=== PATIENT | male | born 1935 | race Caucasian/White ===

== ENCOUNTER 2017-02-11 17:04 | Inpatient (IN) ==
[2017-02-11] MEDS ORDERED: NITROGLYCERIN 0.4 MG SUBLINGUAL TABLET SL PRN (17:21)
[2017-02-11 17:43] VITALS: BMI 28.8
--- NOTE | 2017-02-11 19:03 | Pharmacy Consult ---
Pharmacy Consult-Heparin - Laboratory Information Heparin Plt Count 237 T/MM3 (130-400) 02/11/17 18:09 - Consult Information Heparin consult (cardial dosing) by Kassandra Cooper APRN for Mr Gaston who is 81 years old and weighs 81.2kg. Baseline PTT ordered and once back will bolus at 60 units/kg and run the drip at 12 units/kg/hr. Will order PTT 8 hrs after and evaluate. Thank you.
[2017-02-11] MEDS: LISINOPRIL 2.5 MG TABLET PO SCH (19:05)
[2017-02-11] MEDS: ASPIRIN *EC* 81 MG TABLET PO SCH (19:05)
[2017-02-11] MEDS ORDERED: HEPARIN 1,000unit/ml INJECTION 10ml IVP ONE (20:56)
[2017-02-11] MEDS ORDERED: HEPARIN DRIP 20,000 UNIT/500 ML BAG IV SCH (20:58)
[2017-02-11] MEDS: QUETIAPINE 25 MG TABLET PO SCH (21:13)
[2017-02-11] MEDS: ATORVASTATIN 40 MG TABLET PO SCH (21:13)
[2017-02-12] MEDS ORDERED: LEVOTHYROXINE 100 MCG TABLET PO SCH (06:30)
--- NOTE | 2017-02-12 08:50 | XRay Report ---
Indication: chest pain PROCEDURE: XR chest 1V: Encounter: Initial Comparison: None FINDINGS: The lungs are clear. There is no abnormal airspace opacity, pleural effusion or pneumothorax identified. The heart size, pulmonary vasculature and mediastinum are within normal limits. No significant skeletal abnormality is seen. IMPRESSION: No acute cardiopulmonary abnormality. .
[2017-02-12] MEDS: ASPIRIN *EC* 81 MG TABLET PO SCH (08:51)
[2017-02-12] MEDS: LISINOPRIL 2.5 MG TABLET PO SCH (09:39)
[2017-02-12] MEDS ORDERED: MIDAZOLAM 2mg/2ml INJECTION ONE (12:24)
[2017-02-12] MEDS ORDERED: FentaNYL 100 MCG/2 ML INJECTION ONE (12:24)
[2017-02-12] MEDS ORDERED: SALINE FLUSH 10ml SYRINGE ONE (12:24)
[2017-02-12] MEDS ORDERED: LIDOCAINE 1% (10mg/ml) 30ml SDV INJ ONE (12:24)
[2017-02-12] MEDS ORDERED: HEPARIN 1,000 UNITS/500 ML PREMIX (*CVL ONLY*) IV ONE (12:25)
[2017-02-12] MEDS ORDERED: Verapamil 5 MG/2 ML VIAL ONE (12:43)
[2017-02-12] MEDS ORDERED: HEPARIN 1,000unit/ml INJECTION 10ml ONE (12:43)
[2017-02-12] MEDS ORDERED: NITROGLYCERIN 50MG INJECTION IV ONE (12:43)
[2017-02-12] MEDS ORDERED: NS 1,000 ML ONE (12:47)
[2017-02-12] MEDS ORDERED: TICAGRELOR 90 MG TABLET ONE (13:13)
[2017-02-12] MEDS ORDERED: ATROPINE 1 MG/ML INJECTION IVP PRN (13:53)
[2017-02-12] MEDS ORDERED: MAG-AL + SIM ORAL LIQUID 30ml PO PRN (13:53)
[2017-02-12] MEDS ORDERED: PROMETHAZINE 25 MG INJECTION IVP PRN (13:53)
[2017-02-12] MEDS ORDERED: LORazepam 0.5 MG TABLET PO PRN (13:53)
[2017-02-12] MEDS ORDERED: HYDROCODONE/APAP 7.5 MG/325 MG TABLET PO PRN (13:53)
[2017-02-12] MEDS ORDERED: Bisacodyl EC TAB 5 MG TABLET PO PRN (13:53)
[2017-02-12] MEDS ORDERED: ONDANSETRON 4 MG/2 ML INJECTION IVP PRN (13:53)
[2017-02-12] MEDS ORDERED: MORPHINE SULFATE 4 MG SYRINGE IVP PRN ×2 (13:53)
[2017-02-12] MEDS ORDERED: ACETAMINOPHEN 325 MG TABLET PO PRN (13:53)
[2017-02-12] MEDS ORDERED: BISACODYL 10 MG SUPPOSITORY RECTALLY PRN (13:53)
[2017-02-12] MEDS ORDERED: NITROGLYCERIN 0.4 MG SUBLINGUAL TABLET SL PRN (13:53)
[2017-02-12] MEDS ORDERED: METOCLOPRAMIDE 10mg/2ml INJECTION IVP PRN (13:53)
[2017-02-12] MEDS ORDERED: NS 1,000 ML IV SCH (15:00)
[2017-02-12] MEDS ORDERED: NICOTINE 21 MG PATCH TD PRN (17:42)
[2017-02-12] MEDS: QUETIAPINE 50 MG TABLET PO SCH ×2 (18:29→22:07)
[2017-02-12] MEDS ORDERED: LITHIUM CITRATE PO SCH (21:00)
[2017-02-12] MEDS: QUETIAPINE 25 MG TABLET PO SCH (22:36)
[2017-02-12] MEDS: ATORVASTATIN 40 MG TABLET PO SCH (23:36)
[2017-02-13] MEDS ORDERED: FALL RISK - PHARMACY CONSULT XX ONE (00:51)
[2017-02-13] MEDS: TICAGRELOR 90 MG TABLET PO SCH ×2 (02:35→09:43)
[2017-02-13] MEDS ORDERED: LEVOTHYROXINE 100 MCG TABLET PO SCH (06:30)
[2017-02-13] MEDS ORDERED: ASPIRIN *EC* 81 MG TABLET PO SCH (09:00)
[2017-02-13] MEDS ORDERED: NICOTINE PATCH REMOVAL TD SCH ×2 (09:00→18:00)
--- NOTE | 2017-02-13 10:58 | Cardiac Catheterization Report ---
DATE OF PROCEDURE February 12, 2017 The patient is an 81-year-old gentleman with non-ST elevation myocardial infarction and was referred for further evaluation by cardiac catheterization and possible intervention. Informed consent was obtained after explaining the procedure and the potential risks to the patient who agreed to proceed with the procedure. PROCEDURE 1. Left heart catheterization. 2. Coronary angiography. 3. Left ventriculography. 4. Recanalization PTCA and stent of LAD using a 4.0 x 9 drug-eluting Resolute Integrity stent, 3.0 x 15, 2.75 x 15, and 2.25 x 8 mm drug-eluting Resolute Arturo stents. 5. Right femoral angiography to visualize the vessel for closure device. 6. Successful Mynx deployment for hemostasis. TECHNIQUE He was prepped and draped in the usual sterile techniques. 1% lidocaine was used for local anesthesia. Conscious sedation was performed using Versed and fentanyl. Using modified Seldinger technique, arterial access was obtained into the right femoral artery with placement of a 6-[place] arterial sheath. Initially we tried to get access into the right radial artery, however, were not able to get access into the right radial artery and therefore we changed our approach to femoral approach. 6000 units of heparin was administered prior to intervention. 180 mg of Brilinta was given prior to intervention. LEFT VENTRICULOGRAPHY Left ventriculography in single-plane AMADOR shallow projection showed mild apical hypokinesia with ejection fraction of about 60% with no mitral regurgitation or gradient across the aortic valve. LVEDP was about 18. CORONARY ANGIOGRAPHY Left main was free of significant lesions. Left anterior descending artery had about 90% stenosis proximal to the origin of the diagonal. After diagonal, LAD was occluded. Left circumflex artery had about 70-80% eccentric lesion. Right coronary artery had diffuse disease of up to about 30%. After reviewing the images we decided to proceed with intervention on LAD. A 6- [place] EBU-4 guide was advanced to the ostium of left main. A Runthrough wire was used to cross the lesion into distal LAD after recanalizing the vessel. A 3.0 x 20 balloon was delivered to the occlusion site where it was inflated up to 10 atmospheres. Next, angiogram showed reconstitution of the blood flow all the way down to the apex of the heart. Next, we used a 2.75 x 15 drug-eluting Resolute Arturo stent which was delivered to the distal part of the lesion and deployed by inflating the balloon to 15 atmospheres. Next, we used a 3.0 x 15 drug-eluting Resolute Arturo stent which was delivered proximal to the previous stent and deployed by inflating the balloon to 16 atmospheres. Next, we used a 4.0 x 9 mm drug-eluting Resolute Integrity stent which was delivered to the proximal lesion site where it was deployed by inflating the balloon to 18 atmospheres. Next, angiogram showed excellent results with no residual stenosis. However, there was about 70% stenosis at the distal edge of the distal stent and therefore we decided to proceed with another stent. A 2.25 x 8 mm drug-eluting Arturo stent was delivered to the most distal part and deployed by inflating the balloon to 14 atmospheres. Next, angiogram showed excellent results with no residual stenosis. Next, we used a 2.75 x 15 stent balloon which was delivered to the transition of the distal two stents and was positioned at the transition and inflated up to 14 atmospheres. Next, angiogram showed excellent results with no residual stenosis with excellent flow. The patient tolerated the procedure well with no complications. Right femoral angiography showed patent common femoral, proximal SFA and profunda and therefore Mynx was used for hemostasis. IMPRESSION 1. Coronary artery disease as described above. 2. Total occlusion of the LAD. 3. Apical hypokinesia with ejection fraction of about 60%. 4. Successful recanalization PTCA and stent of LAD using a 2.25 x 8, 2.75 x 15 , and 3.0 x 15 drug-eluting Resolute [place] stents and a 4.0 x 9 drug-eluting Resolute Integrity stent. 5. Successful Mynx deployment for hemostasis. PLAN Will continue dual antiplatelet therapy at least for one year and continue risk modification. One might consider left circumflex artery percutaneous intervention in future. MTDD
--- NOTE | 2017-02-13 13:49 | Discharge Summary ---
<Zeinab Cooper - Last Filed: 02/13/17 14:26> Discharge Information Date of admission: 02/12/17 13:56 Anticipated date of discharge: 02/13/17 Attending Physician: Antione Taylor MD Consults: 02/11/17 Pharmacy Consult [CONS] Routine Pharmacy Consult: Heparin - Procedures Procedures: Date of Exam: 02/12/17 Type of Exam(s): CA heart cath LT DATE OF PROCEDURE February 12, 2017 The patient is an 81-year-old gentleman with non-ST elevation myocardial infarction and was referred for further evaluation by cardiac catheterization and possible intervention. Informed consent was obtained after explaining the procedure and the potential risks to the patient who agreed to proceed with the procedure. PROCEDURE 1. Left heart catheterization. 2. Coronary angiography. 3. Left ventriculography. 4. Recanalization PTCA and stent of LAD using a 4.0 x 9 drug-eluting Resolute Integrity stent, 3.0 x 15, 2.75 x 15, and 2.25 x 8 mm drug-eluting Resolute [place] stents. 5. Right femoral angiography to visualize the vessel for closure device. 6. Successful Mynx deployment for hemostasis. TECHNIQUE He was prepped and draped in the usual sterile techniques. 1% lidocaine was used for local anesthesia. Conscious sedation was performed using Versed and fentanyl. Using modified Seldinger technique, arterial access was obtained into the right femoral artery with placement of a 6-[place] arterial sheath. Initially we tried to get access into the right radial artery, however, were not able to get access into the right radial artery and therefore we changed our approach to femoral approach. 6000 units of heparin was administered prior to intervention. 180 mg of Brilinta was given prior to intervention. LEFT VENTRICULOGRAPHY Left ventriculography in single-plane AMADOR shallow projection showed mild apical hypokinesia with ejection fraction of about 60% with no mitral regurgitation or gradient across the aortic valve. LVEDP was about 18. CORONARY ANGIOGRAPHY Left main was free of significant lesions. Left anterior descending artery had about 90% stenosis proximal to the origin of the diagonal. After diagonal, LAD was occluded. Left circumflex artery had about 70-80% eccentric lesion. Right coronary artery had diffuse disease of up to about 30%. After reviewing the images we decided to proceed with intervention on LAD. A 6- [place] EBU-4 guide was advanced to the ostium of left main. A Runthrough wire was used to cross the lesion into distal LAD after recanalizing the vessel. A 3.0 x 20 balloon was delivered to the occlusion site where it was inflated up to 10 atmospheres. Next, angiogram showed reconstitution of the blood flow all the way down to the apex of the heart. Next, we used a 2.75 x 15 drug-eluting Resolute [place] stent which was delivered to the distal part of the lesion and deployed by inflating the balloon to 15 atmospheres. Next, we used a 3.0 x 15 drug-eluting Resolute [place] stent which was delivered proximal to the previous stent and deployed by inflating the balloon to 16 atmospheres. Next, we used a 4.0 x 9 mm drug-eluting Resolute Integrity stent which was delivered to the proximal lesion site where it was deployed by inflating the balloon to 18 atmospheres. Next, angiogram showed excellent results with no residual stenosis. However, there was about 70% stenosis at the distal edge of the distal stent and therefore we decided to proceed with another stent. A 2.25 x 8 mm drug-eluting Arturo stent was delivered to the most distal part and deployed by inflating the balloon to 14 atmospheres. Next, angiogram showed excellent results with no residual stenosis. Next, we used a 2.75 x 15 stent balloon which was delivered to the transition of the distal two stents and was positioned at the transition and inflated up to 14 atmospheres. Next, angiogram showed excellent results with no residual stenosis with excellent flow. The patient tolerated the procedure well with no complications. Right femoral angiography showed patent common femoral, proximal SFA and profunda and therefore Mynx was used for hemostasis. IMPRESSION 1. Coronary artery disease as described above. 2. Total occlusion of the LAD. 3. Apical hypokinesia with ejection fraction of about 60%. 4. Successful recanalization PTCA and stent of LAD using a 2.25 x 8, 2.75 x 15 , and 3.0 x 15 drug-eluting Resolute [place] stents and a 4.0 x 9 drug-eluting Resolute Integrity stent. 5. Successful Mynx deployment for hemostasis. PLAN Will continue dual antiplatelet therapy at least for one year and continue risk modification. One might consider left circumflex artery percutaneous intervention in future. - Laboratory Labs: 02/13/17 06:05 02/13/17 06:05 Laboratory Results - last 48 hr 02/11/17 02/11/17 02/11/17 18:09 18:09 19:22 WBC 8.5 RBC 4.36 L Hgb 13.1 L Hct 41.1 MCV 94.3 MCH 30.0 MCHC 31.9 RDW Std Deviation 53.8 H Plt Count 237 MPV 10.7 Immature Gran % (Auto) 0.2 Neut % (Auto) 75.2 H Lymph % (Auto) 15.1 L Kaufman % (Auto) 6.3 Eos % (Auto) 2.7 Baso % (Auto) 0.5 Neut # (Auto) 6.4 Lymph # (Auto) 1.3 Kaufman # (Auto) 0.5 Eos # (Auto) 0.2 Baso # (Auto) 0.0 Abs Immat Gran (auto) 0.02 APTT 30.9 Turbidity < 20 Sodium 144 Potassium 4.1 Chloride 114 H Carbon Dioxide 20 L Anion Gap 10 BUN 18.0 Creatinine 1.3 GFR Calculation 53 BUN/Creatinine Ratio 14 Glucose 96 Calculated Osmolality 279 Calcium 9.5 Total Bilirubin 0.80 Icterus Index < 2 AST 26 ALT 30 Alkaline Phosphatase 85 Troponin I 4.580 H Total Protein 7.0 Albumin 3.7 Globulin 3.3 Albumin/Globulin Ratio 1.1 Triglycerides Cholesterol LDL Cholesterol, Calc VLDL Cholesterol HDL Cholesterol Cholesterol/HDL Ratio Specimen Hemolysis < 15 T[place] Specimen Comment Tests Not Done Reason Tests Not Done 02/11/17 02/11/17 02/12/17 23:31 23:31 04:35 WBC RBC Hgb Hct MCV MCH MCHC RDW Std Deviation Plt Count MPV Immature Gran % (Auto) Neut % (Auto) Lymph % (Auto) Kaufman % (Auto) Eos % (Auto) Baso % (Auto) Neut # (Auto) Lymph # (Auto) Kaufman # (Auto) Eos # (Auto) Baso # (Auto) Abs Immat Gran (auto) APTT Turbidity Sodium Potassium Chloride Carbon Dioxide Anion Gap BUN Creatinine GFR Calculation BUN/Creatinine Ratio Glucose Calculated Osmolality Calcium Total Bilirubin Icterus Index AST ALT Alkaline Phosphatase Troponin I 4.770 H Total Protein Albumin Globulin Albumin/Globulin Ratio Triglycerides 117 Cholesterol 161 LDL Cholesterol, Calc 103.6 VLDL Cholesterol 23.4 HDL Cholesterol 34 L Cholesterol/HDL Ratio 4.7 Specimen Hemolysis < 15 [place] 0.5 L Specimen Comment Tests Not Done Reason Tests Not Done 02/12/17 02/12/17 02/12/17 04:35 04:35 04:35 WBC 8.3 RBC 4.23 L Hgb 12.7 L Hct 40.2 L MCV 95.0 MCH 30.0 MCHC 31.6 RDW Std Deviation 53.2 H Plt Count 216 MPV 11.7 Immature Gran % (Auto) Neut % (Auto) Lymph % (Auto) Kaufman % (Auto) Eos % (Auto) Baso % (Auto) Neut # (Auto) Lymph # (Auto) Kauf[place] # (Auto) Eos # (Auto) Baso # (Auto) Abs Immat Gran (auto) APTT 44.6 H Turbidity Sodium Potassium Chloride Carbon Dioxide Anion Gap BUN Creatinine GFR Calculation BUN/Creatinine Ratio Glucose Calculated Osmolality Calcium Total Bilirubin Icterus Index AST ALT Alkaline Phosphatase Troponin I 4.520 H Total Protein Albumin Globulin Albumin/Globulin Ratio Triglycerides Cholesterol LDL Cholesterol, Calc VLDL Cholesterol HDL Cholesterol Cholesterol/HDL Ratio Specimen Hemolysis < 15 [place] Specimen Comment Tests Not Done Reason Tests Not Done 02/12/17 02/12/17 02/12/17 04:35 14:20 15:07 WBC RBC Hgb Hct MCV MCH MCHC RDW Std Deviation Plt Count MPV Immature Gran % (Auto) Neut % (Auto) Lymph % (Auto) Kaufman % (Auto) Eos % (Auto) Baso % (Auto) Neut # (Auto) Lymph # (Auto) K[place] # (Auto) Eos # (Auto) Baso # (Auto) Abs Immat Gran (auto) APTT Cancelled Turbidity < 20 Sodium 144 Potassium 4.0 Chloride 118 H Carbon Dioxide 16 L Anion Gap 10 BUN 16.0 Creatinine 1.2 GFR Calculation 58 BUN/Creatinine Ratio 13 Glucose 82 Calculated Osmolality 277 Calcium 9.7 Total Bilirubin Icterus Index < 2 AST ALT Alkaline Phosphatase Troponin I Total Protein Albumin Globulin Albumin/Globulin Ratio Triglycerides Cholesterol LDL Cholesterol, Calc VLDL Cholesterol HDL Cholesterol Cholesterol/HDL Ratio Specimen Hemolysis < 15 [place] Specimen Comment Lab to recollect Tests Not Done Ptt Reason Tests Not Done QNS 02/13/17 02/13/17 06:05 06:05 WBC 8.1 RBC 4.25 L Hgb 12.7 L Hct 40.2 L MCV 94.6 MCH 29.9 MCHC 31.6 RDW Std Deviation 52.5 H Plt Count 215 MPV 10.6 Immature Gran % (Auto) 0.2 Neut % (Auto) 74.7 H Lymph % (Auto) 15.4 L Kauf[place] % (Auto) 7.2 Eos % (Auto) 2.3 Baso % (Auto) 0.2 Neut # (Auto) 6.1 Lymph # (Auto) 1.3 Kaufman # (Auto) 0.6 Eos # (Auto) 0.2 Baso # (Auto) 0.0 Abs Immat Gran (auto) 0.02 APTT Turbidity < 20 Sodium 144 Potassium 4.2 Chloride 113 H Carbon Dioxide 22 D Anion Gap 9 BUN 14.0 Creatinine 1.2 GFR Calculation 58 BUN/Creatinine Ratio 12 Glucose 92 Calculated Osmolality 278 Calcium 9.7 Total Bilirubin Icterus Index < 2 AST ALT Alkaline Phosphatase Troponin I Total Protein Albumin Globulin Albumin/Globulin Ratio Triglycerides Cholesterol LDL Cholesterol, Calc VLDL Cholesterol HDL Cholesterol Cholesterol/HDL Ratio Specimen Hemolysis < 15 [place] Specimen Comment Tests Not Done Reason Tests Not Done - Radiology Radiology: Date of Exam: 02/11/17 Ordering Provider: Zeinab Cooper APRN Type of Exam(s): XR chest 1V Reason for Exam(s): chest pain Indication: chest pain PROCEDURE: XR chest 1V: Encounter: Initial Comparison: None FINDINGS: The lungs are clear. There is no abnormal airspace opacity, pleural effusion or pneumothorax identified. The heart size, pulmonary vasculature and mediastinum are within normal limits. No significant skeletal abnormality is seen. IMPRESSION: No acute cardiopulmonary abnormality. History of Present Illness HPI: Shahram is a 81 year old male who is new to Dr. Taylor's practice and was seen in [facility] on 02/11/17 after having been to [facility] on 02/06/17 with chest pain and troponin was found to be 1.[address] depression on his EKG. At thst time he was upset with the ED DR and left without treatment or intervention. He presented to the [place] clinic with intermittent chest pain which began 2 weeks ago and generally lasts 2 hours. The episodes occur at rest and are associated with dyspnea. He was transferred to [facility] for evaluation and treatment of NSTEMI. He was started on Heparin drip until left heart cath. He was given Mniwxicazf79.5mg BID and Atorvastatin 40mg po daily. ACEI/ARB medications are contraindicated due to interaction with patient's Tyndall for Bipolar disorder. Hospital Course This is a general summary of the patient's hospital course. For more details refer to the complete medical record. Hospital course: 02/12/17 Left heart cath: Patient had total occlusion of the LAD. Apical hypokinesia with ejection fraction of about 60%. Successful recanalization PTCA and stent of LAD using a 2.25 x 8, 2.75 x 15, and 3.0 x 15 drug-eluting Resolute [place] stents and a 4.0 x 9 drug-eluting Resolute Integrity stent. He was given loading dose of Brilinta and aspirin in the microbiology lab analyst. Transferred to CCU for monitoring overnight Time spent with patient: 25 - 35 minutes Exam Vital signs: Temperature 98.4 F 02/13/17 07:30 Pulse Rate 66 02/13/17 07:57 Respiratory Rate 22 02/13/17 07:03 Blood Pressure 129/63 02/13/17 07:03 Pulse Oximetry 93 02/13/17 07:03 - Constitutional no acute distress, well nourished, cooperative - Routine HEENT Exam Head: Present: normocephalic ENT: Present: mucous membranes moist - Routine Neck Exam Absent: JVD, carotid bruit - Routine Chest/Breast/Axilla Exam Chest wall: Absent: tenderness - Routine Respiratory Exam Present: CTA bilaterally. Absent: rales, wheezes - Routine Cardiovascular Exam Present: RRR, no murmur. Absent: JVD - Routine Abdominal Exam Present: soft, normoactive bowel sounds - Routine Extremities Exam Present: no edema - Routine Skin Exam Present: intact, dry, warm - Routine Neurological Exam Present: alert, oriented X3 - Routine Psychiatric Exam Present: normal affect, normal thought process Results 02/13/17 06:05 02/13/17 06:05 Coagulation 02/12/17 Range/Units 14:20 APTT Cancelled CBC 02/13/17 Range/Units 06:05 WBC 8.1 (4.5-11.0) T/MM3 RBC 4.25 L (4.50-5.90) M/MM3 Hgb 12.7 L (13.5-17.5) GM/DL Hct 40.2 L (41-53) % Plt Count 215 (130-400) T/MM3 Neut # (Auto) 6.1 (1.8-7.7) T/MM3 Lymph # (Auto) 1.3 (1-4.8) T/MM3 Kaufman # (Auto) 0.6 (0-0.8) T/MM3 Eos # (Auto) 0.2 (0-0.5) T/MM3 Baso # (Auto) 0.0 (0-0.2) T/MM3 Comprehensive Metabolic Panel 02/13/17 Range/Units 06:05 Sodium 144 (134-144) MEQ/L Potassium 4.2 (3.6-5) MEQ/L Chloride 113 H (98-107) MEQ/L Carbon Dioxide 22 D (22-30) MEQ/L BUN 14.0 (9-20) MG/DL Creatinine 1.2 (0.8-1.5) MG/DL Glucose 92 (75-110) MG/DL Calcium 9.7 (8.4-10.2) MG/DL Intake and Output 02/12/17 02/13/17 02/13/17 22:59 06:59 14:59 Intake Total 528.75 / 528.75 525 / 525 Output Total 125 / 125 Balance 403.75 / 403.75 525 / 525 Intake: IV 288.75 / 288.75 225 / 225 Normal Saline 1,000 ml @ 288.75 / 288.75 225 / 225 75 mls/hr IV .[id number] GIOVANNI Rx#:[id number] Oral 240 / 240 300 / 300 Output: Urine 125 / 125 Other: Urine Appearance Clear Clear Clear Urine Color Yellow Yellow Yellow Urine Odor Normal Normal Normal # Voids 1 1 1 Weight 185 lb 6.54 oz Patient Weight 02/14/17 06:59 Weight 185 lb 6.54 oz - Imaging and Cardiology Cardiac cath: report reviewed EKG results: image reviewed - EKG Interpretation EKG: sinus rhythm (inferior [place]) Discharge Plan - Med Rec/Dispo Referrals/Follow Up: Antione Taylor MD [Physician] - 03/05/17 10:20 am Mayur Instructions: [facility] Heart Cath, [facility] Heart Cath Trans Rad Prescriptions: New Aspirin *EC* [Ecotrin] 81 mg PO DAILY #30 tab Metoprolol Tartrate [Lopressor] 12.5 mg PO BIDWM #30 tab Ticagrelor [Brilinta] 90 mg PO BID #180 tab Atorvastatin [Lipitor] 40 mg PO HS #30 tab Continue Quetiapine [Seroquel] 50 mg PO HS Levothyroxine Sodium 100 mcg PO MOTUWETHFR Levothyroxine Sodium 200 mcg PO SUSA Tyndall Carbonate 200 mg PO HS - Disposition 01 Discharged Home, Self-Care <Antione Taylor - Last Filed: 02/18/17 13:28> Discharge Information Date of admission: 02/12/17 13:56 Attending Physician: Antione Taylor MD Consults: 02/11/17 Pharmacy Consult [CONS] Routine Pharmacy Consult: Heparin - Laboratory Labs: 02/13/17 06:05 02/13/17 06:05 Hospital Course This is a general summary of the patient's hospital course. For more details refer to the complete medical record. Exam Vital signs: Temperature 99.1 F 02/13/17 12:00 Pulse Rate 50 L 02/13/17 12:00 Respiratory Rate 20 02/13/17 12:00 Blood Pressure 110/54 02/13/17 13:01 Pulse Oximetry 99 02/13/17 13:01 Results 02/13/17 06:05 02/13/17 06:05 Discharge Plan - Med Rec/Dispo - Attestation Attestation Narrative: 02/18/17 13:28 Recommendation After examining the patient I agree with the above assessment. I am involved in the formulation of the patient's plan of care.
[2017-02-13] MEDS ORDERED: PNEUMOCOCCAL 13 VACCINE 0.5ml INJECTION IM ONE (14:17)
[2017-02-13 14:24] VITALS: BP 110/54; PULSE 50; RESP 20; TEMP 99.1; O2SAT 99
[2017-02-13] MEDS ORDERED: PNEUMOCOCCAL VAC ADMIN CHARGE INJ ONE (15:54)
[2017-02-14] MEDS ORDERED: LEVOTHYROXINE 100 MCG TABLET PO SCH (06:30)
== END 2017-02-13 15:55 | disposition home or self-care (01) | DRG 246 ==
LOC: SRG → CCU 02-12 13:51
PROVIDERS: ADMIT Internal Medicine Cardiovascular Disease; ATTEND Internal Medicine Cardiovascular Disease